=== PATIENT | male | born 1960 | race African-American/Black ===

== ENCOUNTER → 2016-04-19 | Outpatient (CLI) | payer MEDICARE, MEDICAID | END | disposition home or self-care (01) | LOC: RAD 09:47 | PROVIDERS: ATTEND Internal Medicine | DX: I49.9 Cardiac arrhythmia, unspecified (principal); R91.8 Other nonspecific abnormal finding of lung field; J98.11 Atelectasis; M41.85 Other forms of scoliosis, thoracolumbar region | CPT/HCPCS: 71020; 93005 ==

== ENCOUNTER → 2016-12-05 | Outpatient (CLI) | payer MEDICARE, MEDICAID | END | disposition home or self-care (01) | LOC: RAD 09:23 | PROVIDERS: ATTEND Internal Medicine | DX: J18.9 Pneumonia, unspecified organism (principal); M41.9 Scoliosis, unspecified; R06.02 Shortness of breath | CPT/HCPCS: 71020 ==